=== PATIENT | male | born 1990 | race Caucasian/White ===

== ENCOUNTER 2020-08-30 14:00 | Outpatient (RCR) | payer MEDICARE, MEDICAID, SELFPAY | END 2020-10-27 14:02 | disposition home or self-care (01) | LOC: HO.PTCHIC 14:00 | PROVIDERS: PCP Internal Medicine; Visit Provider Physical Medicine & Rehabilitation Sports Medicine | DX: M75.81 Other shoulder lesions, right shoulder (principal) | CPT/HCPCS: 97110; 97162 ==

== ENCOUNTER 2020-12-27 13:00 | Outpatient (RCR) | payer MEDICAID, SELFPAY | END 2021-01-08 10:46 | disposition home or self-care (01) | LOC: HO.PTCHIC 13:00 | PROVIDERS: PCP Internal Medicine; Visit Provider Internal Medicine | DX: R53.81 Other malaise (principal) | CPT/HCPCS: 97110; 97162; 97530 ==

== ENCOUNTER 2021-05-17 13:00 | Outpatient (RCR) | payer MEDICAID, MEDICARE, SELFPAY | END 2021-07-26 13:29 | disposition home or self-care (01) | LOC: HO.PTCHIC 13:00 | PROVIDERS: PCP Internal Medicine; Visit Provider Orthopaedic Surgery | DX: M25.551 Pain in right hip (principal); R53.1 Weakness | CPT/HCPCS: 97110; 97140; 97162 ==

== ENCOUNTER 2022-03-15 14:00 | Outpatient (RCR) | payer MEDICAID, SELFPAY | END 2022-05-19 14:29 | disposition home or self-care (01) | LOC: HO.PTCHIC 14:00 | PROVIDERS: PCP Internal Medicine; Visit Provider Physical Medicine & Rehabilitation Sports Medicine | DX: M77.52 Other enthesopathy of left foot and ankle (principal) | CPT/HCPCS: 97110; 97112; 97162; 97530 ==